=== PATIENT | male | born 1940 | race Caucasian/White ===

== ENCOUNTER 2020-08-05 15:51 | Emergency (ER) | payer MEDICARE, OTHER ==
[~2020-08-05] VITALS: Ht 167.6 cm; Wt 81.7 kg
[2020-08-05 16:37] LABS: BASOPHILS ABSOLUTE AUTO 0.03 K/mm3 (0.00-0.23); BASOPHILS PERCENT AUTO 1 % (0-2); EOSINOPHILS ABSOLUTE AUTO 0.02 K/mm3 (0.00-0.68); EOSINOPHILS PERCENT AUTO 0 % (0-6); Hematocrit 51.4 % (37.0-53.0); Hemoglobin 17.2 g/dL (13.5-17.5); IMMATURE GRAN ABSOLUTE AUTO 0.03 K/mm3 (0.00-0.10); IMMATURE GRAN PERCENT AUTO 1 % (0-1); LYMPHOCYTES ABSOLUTE AUTO 1.08 K/mm3 (0.84-5.20); LYMPHOCYTES PERCENT AUTO 21 % (21-46); MONOCYTES ABSOLUTE AUTO 0.76 K/mm3 (0.16-1.47); MONOCYTES PERCENT AUTO 15 % (4-13); Mean Corpuscular HGB 29.4 pg (26.0-34.0); Mean Corpuscular HGB Conc 33.5 g/dL (31.5-36.5); Mean Corpuscular Volume 88 fL (80-100); NEUTROPHILS ABSOLUTE AUTO 3.23 K/mm3 (1.96-9.15); NEUTROPHILS PERCENT AUTO 63 % (41-73); Platelet Count 172 K/mm3 (150-400); RDW Coefficient Variation 12.8 % (11.7-14.2); RDW Standard Deviation 41.6 fL (35.1-46.3); Red Blood Cell Count 5.85 M/mm3 (4.30-5.90); White Blood Cell Count 5.15 K/mm3 (4.00-11.30)
[2020-08-05 17:02] LABS: Albumin/Globulin Ratio 0.7 (0.8-1.8); Bilirubin, Total 0.6 mg/dL (0.1-1.0); Bun/Creatinine Ratio 14.4 (12.0-20.0); Calcium, Blood 10.3 mg/dL (8.5-10.1); Creatinine, Blood 1.46 mg/dL (0.60-1.20); Globulin, Blood 4.4 g/dL (2.2-4.0); Potassium, Blood 4.1 mmol/L (3.5-5.5); Total Protein, Blood 7.4 g/dL (6.4-8.2)
== END 2020-08-05 18:40 | disposition home or self-care (01) ==
LOC: ER 15:51
PROVIDERS: Physician Assistant
DX: U07.1 COVID-19 (principal); E86.0 Dehydration
CPT/HCPCS: 71045; 80053; 85025; 96361; 96374; 99285-25; J2405; J7030

== ENCOUNTER 2024-09-04 14:25 | Inpatient (IN) | payer OTHER, MEDICARE ==
[~2024-09-04] VITALS: Ht 165.1 cm; Wt 51.0 kg
[2024-09-04 16:26] LABS: BASOPHILS ABSOLUTE AUTO 0.03 K/mm3 (0.00-0.23); BASOPHILS PERCENT AUTO 1 % (0-2); EOSINOPHILS ABSOLUTE AUTO 0.04 K/mm3 (0.00-0.68); EOSINOPHILS PERCENT AUTO 1 % (0-6); Hematocrit 42.9 % (37.0-53.0); Hemoglobin 14.2 g/dL (13.5-17.5); IMMATURE GRAN ABSOLUTE AUTO 0.02 K/mm3 (0.00-0.10); IMMATURE GRAN PERCENT AUTO 0 % (0-1); LYMPHOCYTES ABSOLUTE AUTO 0.85 K/mm3 (0.84-5.20); LYMPHOCYTES PERCENT AUTO 15 % (21-46); MONOCYTES ABSOLUTE AUTO 0.30 K/mm3 (0.16-1.47); MONOCYTES PERCENT AUTO 5 % (4-13); Mean Corpuscular HGB Conc 33.1 g/dL (31.5-36.5); Mean Corpuscular Volume 92 fL (80-100); NEUTROPHILS ABSOLUTE AUTO 4.48 K/mm3 (1.96-9.15); NEUTROPHILS PERCENT AUTO 78 % (41-73); NRBC ABSOLUTE 0.00 K/mm3 (0.00-0.02); NRBC Auto 0.0 /100 WBC (0.0-0.2); Platelet Count 189 K/mm3 (150-400); RDW Coefficient Variation 12.8 % (11.7-14.2); RDW Standard Deviation 42.9 fL (35.1-46.3)
[2024-09-04 16:59] LABS: Alanine Aminotransfer (ALT/SGP 23.0 U/L (12-78); Albumin, Blood 3.3 g/dL (3.4-5.0); Albumin/Globulin Ratio 0.9 (0.8-1.8); Anion Gap 5.0 mmol/L (3-11); Aspartate Aminotrans (AST/SGOT 55.0 U/L (12-37); Bilirubin, Total 0.4 mg/dL (0.1-1.0); Blood Urea Nitrogen 19.0 mg/dL (8-24); CO2, Blood 24.0 mmol/L (21-32); Calcium, Blood 10.2 mg/dL (8.5-10.1); Chloride, Blood 105.0 mmol/L (98-108); Creatinine, Blood 0.94 mg/dL (0.60-1.20); Globulin, Blood 3.8 g/dL (2.2-4.0); Glucose, Blood 163.0 mg/dL (70-99); Potassium, Blood 4.3 mmol/L (3.5-5.5); Sodium, Blood 130.0 mmol/L (136-145); Total Protein, Blood 7.1 g/dL (6.4-8.2)
[2024-09-04 17:22] LABS: Source, Urine Clean Catch
[2024-09-04 17:44] LABS: Bilirubin, Urine Neg (Neg); Color, Urine Yellow (P-Yellow); Glucose Qualitative, Urine Neg (Neg); Ketones, Urine Neg (Neg); Leukocyte Esterase, Urine 3+ (Neg); Protein, Urine 2+ (Neg); Specific Gravity, Urine 1.020 (1.003-1.022); Urobilinogen, Urine NORM (Normal)
[2024-09-04 18:11] LABS: U Amphetamine Screen Not Detected; U Barbituate Screen Not Detected; U Benzodiazapine Screen Not Detected; U Buprenorphine Screen Not Detected; U Cannabinoids Screen Not Detected; U Cocaine Screen Not Detected; U Methadone Screen Not Detected; U Methamphetamine Screen Not Detected; U Opiates Screen Not Detected; U Oxycodone Screen Not Detected; U Phencyclidine Screen Not Detected
[2024-09-04] MEDS ORDERED: NS 1,000 ML IV ONE ×2 (18:30→23:55)
[2024-09-04 18:39] LABS: White Blood Cells, Urine 50-100 /hpf (0-5)
[2024-09-04] MEDS ORDERED: DiphenhydrAMINE HCl 50 MG/ML 1ML Vial IV ONE (19:00)
[2024-09-04 21:45] VITALS: BP 119/68
[2024-09-04] MEDS ORDERED: CefTRIAXone Sodium 1,000 MG in NS 100 ML IV SCH (22:14)
[2024-09-04] MEDS ORDERED: Diazepam 5 MG / ML 2ML SYR IV ONE (23:05)
--- NOTE | 2024-09-04 23:06 | NUR ---
PT ARRIVED TO FLOOR IN RESTRAINTS. PT HAS NO ACTIVE ORDER SO RESTRAINTS WERE REMOVED. PT OKAY WITH STAFF TAKING VITALS AND ASSESSMENTS. UNABLE TO PROVIDE MEDICAL HISTORY OR MEDICATION HISTORY DUE TO CONFUSION. PT IS ON ANTIBIOTICS FOR UTI. PT REFUSED EVENING PILLS AND WOULD NOT LET THIS RN SET UP IV ABX. PT KEPT SHOUTING "NO YOURE DONE". ORDER FROM PROVIDER FOR IV DIAZEPAM AT THIS TIME TO HELP CALM PATIENTS AGITATION. SITTER AT BEDSIDE AND BED ALARM ON.
[2024-09-04] MEDS ORDERED: NS 1,000 ML BAG IR ONE (23:40)
--- NOTE | 2024-09-05 00:31 | NUR ---
RN TRIED TO START IV FLUIDS ON PT AFTER COMPLETION OF IV ANTIBIOTICS. PT REFUSED AND GOT AGGRESSIVE WITH THIS RN. THIS RN CALLED PROVIDER AND HE OKAYED HOLDING OFF ON FLUIDS AT THIS TIME. HE DID NOT WANT TO ORDER ANY MORE MEDICATION TO REDUCE AGITATION. PT RESTING AT THIS TIME. 1:[address] AND BED ALARM ON.
[2024-09-05 04:20] VITALS: BP 101/59
--- NOTE | 2024-09-05 05:10 | NUR ---
CHECKED ON PT FINISHING USING HIS URINAL, EMPTIED 50MLS, ASKED IF THIS RN COULD CHECK IF HE WAS DRY AND HE REFUSED. PT STATES "JUST LEAVE ME ALONE". PT AGITATED WITH STAFF. BED ALARM ON AND 1:[address]
[2024-09-05 05:29] LABS: Anion Gap 6.0 mmol/L (3-11); Blood Urea Nitrogen 15.0 mg/dL (8-24); CO2, Blood 30.0 mmol/L (21-32); Calcium, Blood 10.1 mg/dL (8.5-10.1); Chloride, Blood 110.0 mmol/L (98-108); Creatinine, Blood 0.98 mg/dL (0.60-1.20); Glucose, Blood 83.0 mg/dL (70-99); Potassium, Blood 4.0 mmol/L (3.5-5.5); Sodium, Blood 142.0 mmol/L (136-145)
[2024-09-05 08:39] VITALS: BP 105/75
[2024-09-05] MEDS ORDERED: Lactobacil 2-S.Thermo-Bifido 1 1 Cap PO SCH (09:00)
[2024-09-05] MEDS ORDERED: Enoxaparin 40 MG/0.4 ML SYR SC SCH (09:00)
--- NOTE | 2024-09-05 12:28 | NUR ---
assumed care of pt. pt is a/o x 1 and very pleasent, no restraints, sitter at bedside. pt is easily reoriented but quickly forgets and is poor historian. spoke with Leonard (son) for basic information, plan for SNF need for time broker monitored care. pt has shown no s/s of any agression. pt has been very cooperative
--- NOTE | 2024-09-05 12:45 | NUR ---
PALLIATIVE CARE VISIT: REFERRAL RECEIVED FOR GOALS OF CARE FROM PRIMARY RN. REVIEWED MEDICAL RECORD, FOUND POLST THROUGH REGISTRY AND SPOKE TO PRIMARY RN PRIOR TO VISIT. ACCORDING TO PRIMARY RN SON NAPOLEON INTERESTED IN COMFORT CARE FOR HIS DAD SINCE HE IS REFUSING MEDICATIONS. SPOKE TO DR. KESSLER AND CONFERRED PT DOES NOT QUITE MEET CRITERIA FOR HOSPICE ADMISSION AT THIS TIME. DX:DEMENTIA. ALBUMIN IS 3.3. FAST SCALE STAGE 4. KPS 60%. THERE IS REPORTED WEIGHT LOSS OF UNKNOWN AMOUNT. PT HAS NO OTHER CHRONIC ILLNESSES. COMFORT CARE IS NOT APPROPRIATE AT THIS TIME. SPOKE TO SON NAPOLEON. HE REPORTS HE IS ALSO POA. DISCUSSED HOSPICE SERVICES AND INFORMED SON HIS DAD DOES NOT MEET CRITERIA YET AND SO UNABLE TO PLACE ON COMFORT CARE AT THIS TIME. NAPOLEON HAS CONCERNS OF HIM GOING BACK HOME DUE TO HIS WANDERING AND GETTING IN A ALTERCATION WITH NEIGHBOR. NAPOLEON HAS BEEN WORKING WITH CT AND PLACED HIS DAD ON WAIT LIST TO LIVE [facility] [address]. NAPOLEON PREFERS HIS DAD TO [facility]. DISCUSSED CODE STATUS. NAPOLEON STATES HIS DAD HAS POLST COMPLETED INDICATING CHOICES OF DNR. FOUND POLST ON FILE THROUGH REGISTRY AND HE IS AGREEABLE TO CODE STATUS CHANGED TO DNR. ADVISED NAPOLEON TO BRING IN POA DOCUMENTS FOR OUR RECORDS IN CASE OF NEED. NAPOLEON WILL BE OUT OF TOWN TOMORROW AND MAY NOT HAVE CELL CARD TENDER FOR PART OF THE DAY. BUT WILL BE HERE TONIGHT TO DROP OFF HIS DADS EYE GLASSES AND HEARING AIDS. DR. KESSLER AGREEABLE TO DNR CODE STATUS, ORDER PLACED. UPDATED PRIMARY RN WITH ABOVE CONVERSATION. NOTIFIED CM OF ABOVE CONCERNS.
[2024-09-05 16:15] VITALS: BP 101/55
[2024-09-05 19:12] VITALS: BP 97/58
[2024-09-06 02:20] VITALS: BP 124/72
--- NOTE | 2024-09-06 04:35 | NUR ---
SHIFT SUMMARY PATIENT IS ALERT AND ORIENTED X1. PATIENT HAS HAD NO ACUTE EVENTS THIS SHIFT VITAL SIGNS REVIEWED. PATIENT HAS BEEN IMPULSIVE BUT REDIRECTABLE. PATIENT HAS BEEN PLEASANT AND COOPERATIVE WITH CARE. PATIENT HAS HAD NO COMPLAINTS OF SOB, NAUSEA, PAIN OR VOMITTING THIS SHIFT. BED IN LOCKED AND LOWEST POSITION. CALL LIGHT IN PLACE.
[2024-09-06 07:32] VITALS: BP 115/59
--- NOTE | 2024-09-06 17:26 | NUR ---
SHIFT SUMMARY PT UP TO CHAIR FOR MEALS TODAY. SHOWERED. AMBULATING WITH SBA WITHIN HIS ROOM. PT PLEASANT & COOPERATIVE TODAY. SPENDING A MAJORITY OF THE DAY READING HIS BIBLE. NO OTHER ACUTE CHANGES IN ASSESSMENT AT THIS TIME. VS REVIEWED. CALL LIGHT IN REACH. PT RESTING IN BED, BREATHING EASY & UNLABORED.
[2024-09-06 17:49] VITALS: BP 116/74
[2024-09-06 19:19] VITALS: BP 118/76
[2024-09-07 03:08] VITALS: BP 120/71
--- NOTE | 2024-09-07 04:04 | NUR ---
SHIFT SUMMARY PATIENT IS ALERT AND ORIENTED X2. PATIENT HAS HAD NO ACUTE EVENTS THIS SHIFT. VITAL SIGNS REVIEWED. PATIENT HAS HAD NO COMPLAINTS OF PAIN, NAUSEA, SOB OR VOMITTING. PATIENT HAS BEEN SLEEPING MOST OF SHIFT. BED IN LOCKED AND LOWEST POSITION. CALL LIGHT IN PLACE.
[2024-09-07 07:07] VITALS: BP 99/62
--- NOTE | 2024-09-07 12:23 | NUR ---
Patient is sitting on a chair and alert. He tells me about his time in the [employer], how proud he is of his grandson for recently becoming a [employer] in the [employer] and about his frustrations over the down turn of the [place] (politically and morally). He talks about the importance of the Bible, following God and of prayer. I provided a prayer for him which made him tearful, yet he expresses gratitude for the prayer. He says some random things during our conversation like, "They've given me my last pill and they won't give me anymore." And in the middle of a sentence he changed subjects and said, "Do you know who created this bed or this wall or this piece of paper?" And then he would go back to being very focused on the subject at hand. He shared about his fear of losing his "independence" and "losing his grasp." We talk about remaining kind and trying to remember who he is even if he can't remember other things or he feels lost or afraid. We talk about saying a prayer in those moments asking for God's peace and presence. He voices gratitude for the visit.
--- NOTE | 2024-09-07 12:50 | NUR ---
PT TRANSFERRED FROM ICU 10. HOME NICOTINE LOZENGES SENT UP AND PLACED IN DRAWER. CIWA ASSESS AND REMAINS SCORE OF 4. PT HAS NS RUNNING IN POWERGLIDE TO CABRERA AT 75 ML/HR. PT CALM AND COOPERATIVE. B/P DOWN IN ICU WAS ELEVATED IN 170'S WITH NO RECHECK. PT BLOOD PRESSURE SYSTOLICALLY IN THE 150'S AND DIASTOLIC IN THE LOW 100'S WITH HR IN LOW 100'S. DR. KESSLER NOTIFIED AND ORDERED 6.25 MG CARVEDILOL TO START NOW.
[2024-09-07 15:26] VITALS: BP 108/65
--- NOTE | 2024-09-07 17:22 | NUR ---
SUMMARY PT PLEASANT AND COOPERATIVE WITH CARE. SAT UP IN CHAIR MOST OF DAY. TOOK A NAP THIS EVENING. PT POTENTIAL DC TOMORROW PER DOCTOR KESSLER. PT SON NAPOLEON TOOK HIS WALLET AND KEYS HOME SO NOT TO BE DISPLACED.
[2024-09-07 19:51] VITALS: BP 109/58
[2024-09-08 03:51] VITALS: BP 124/72
--- NOTE | 2024-09-08 04:20 | NUR ---
SHIFT SUMMARY PATIENT IS ALERT AND ORIENTED X2. PATIENT HAS HAD NO ACUTE EVENTS THIS SHIFT. VITAL SIGNS REVIEWED. PATIENT HAS BEEN PLEASENT AND COOPERATIVE THIS SHIFT. PATIENT HAS CALLED APPROPRIATELY. PATIENT HAS SLEPT MOST OF SHIFT. PATIENT HAS NO COMPLAINTS OF SOB, NAUSEA, VOMITTING OR PAIN THIS SHIFT. BED IN LOCKED AND LOWEST POSITION. CALL LIGHT IN PLACE.
[2024-09-08 07:36] VITALS: BP 107/63
[2024-09-08] MEDS ORDERED: CefTRIAXone Sodium 1,000 MG in NS 100 ML IV SCH (15:00)
[2024-09-08] MEDS ORDERED: DRON2.5 PO (15:29)
[2024-09-08] MEDS ORDERED: VISBIOME 112.51 EACH PO (15:29)
[2024-09-08] MEDS ORDERED: MIRT15 PO (15:29)
[2024-09-08 15:46] VITALS: BP 97/61
--- NOTE | 2024-09-08 16:34 | NUR ---
Spiritual care visit conducted. The patient said smoethings out of context today but also was fairly grounded in some family member's names, some general locations. He was very tearful when I read Psalm 16 to him and when I prayed. Currently there is a softer side of him that connects to conversations around God's love and His care for us. He also was tearful one other time when he stated that he hoped that he has "done some good on this planet" because he feels like his "time is short." He stated that his son Leonard is a good man and that he even takes care of his dog. I provided therapeutic listening, scripture reading and prayer. The patient responded well and showed signs of being encouraged in his charisma and about his future.
--- NOTE | 2024-09-08 19:59 | NUR ---
DISCHARGE NOTE PT NEEDED NEW IV FOR LAST IV ANTIBIOTIC DOSE. IV WAS THEN REMOVED WHEN COMPLETED. PT SON NAPOLEON CAME TO BRING CLOTHES, DISCHARGE PACKET REVIEWED WITH PATIENT FAMILY. HARD SCRIPT FOR ANNETTE SENT IN PACKET. EDUCATED BRIEFLY REVIWED WITH FAMILY ON NEW MEDICAITONS. NO QUESTIONS OR CONCERNS PRIOR TO DC.
== END 2024-09-08 19:00 | disposition home or self-care (01) | DRG 689 ==
LOC: ER 14:25 → MEDS 14:26
PROVIDERS: Emergency Medicine; Nurse Practitioner Acute Care; ADMIT Student in an Organized Health Care Education/Training Program
DX: N39.0 Urinary tract infection, site not specified (principal); G93.41 Metabolic encephalopathy; E44.1 Mild protein-calorie malnutrition; F02.811 Dementia in other diseases classified elsewhere, unspecified severity, with agitation; E87.1 Hypo-osmolality and hyponatremia; B96.20 Unspecified Escherichia coli [E. coli] as the cause of diseases classified elsewhere; G30.9 Alzheimer's disease, unspecified; E83.52 Hypercalcemia; Z66 Do not resuscitate; Z60.2 Problems related to living alone
CPT/HCPCS: 36415; 70450; 71045; 80048; 80053; 81001; 85025; 87077; 87086; 87186; 93005; 93010; 96365; 96372; 96375; 99285-25; A9270; G0378; J0696; J1650; J3360; J7030; Q0167